=== PATIENT | male | born 1985 | race Caucasian/White ===

== ENCOUNTER 2022-05-09 19:22 | Emergency (ER) | payer OTHER, SELFPAY ==
[2022-05-09] MEDS ORDERED: KETOROLAC 30 MG/ML INJ ONE (20:24)
[2022-05-09] MEDS ORDERED: LIDOCAINE 4% PATCH ONE (20:24)
--- NOTE | 2022-05-09 22:04 | RAD REPORT ---
EXAM DESCRIPTION: RAD - Thoracic Spine Ap/Lat - 05/09/2022 8:59 pm CLINICAL HISTORY: PAIN COMPARISON: No comparisons FINDINGS: AP & lateral views of the thoracic spine were obtained. Thoracic bodies are normal in height and alignment. There are no acute or destructive bony processes seen. No disc space narrowing. Endplate spurring changes are present. No paraspinal masses are identified. IMPRESSION: Negative thoracic spine examination for acute finding.
--- NOTE | 2022-05-09 22:05 | RAD REPORT ---
EXAM DESCRIPTION: RAD - Ribs Left - 05/09/2022 8:59 pm CLINICAL HISTORY: Lifting injury, left-sided rib pain COMPARISON: None. FINDINGS: No displaced rib fracture is seen and no non-displaced rib fractures suspected. No aggress josie rib lesion. No underlying pneumothorax, effusion, infiltrate or pulmonary contusion. IMPRESSION: Negative left rib series.
--- NOTE | 2022-05-09 22:55 | EDPHYS ---
Physician Documentation [facility] Name: Henrique Zelaya Age: 36 yrs Sex: Male : 1985 Arrival Date: 05/09/2022 Time: 19:26 Bed 16 Private MD: ED Physician Harjeet Caal HPI: 05/09 20:06 This 36 yrs old Male presents to ER via Ambulatory with complaints of Back Pain. pm1 20:06 The patient presents with pain that is acute. The symptoms are located in the Left pm1 lower anterior rib cage. 20:06 Onset: The symptoms/episode began/occurred 2 day(s) ago. Associated signs and symptoms: pm1 Pertinent negatives: abdominal pain, dysuria, fever, headache, nausea, vomiting. The problem was sustained lifting heavy object and twisting. Modifying factors: The patient symptoms are alleviated by nothing, the patient symptoms are aggravated by bending, movement. Severity of symptoms: in the emergency department the symptoms are unchanged. The patient has not experienced similar symptoms in the past. The patient has not recently seen a physician. Historical: - Allergies: 19:40 No Known Allergies; lp1 - Home Meds: 19:40 None [Active]; lp1 - PMHx: 19:40 Depression; [place] Dx; lp1 - PSHx: 19:40 Carpel Tunnel; lp1 - Immunization history:: Adult Immunizations up to date. - Social history:: Smoking status: Patient denies any tobacco usage or history of. ROS: 20:06 Constitutional: Negative for fever, chills, and weight loss, Respiratory: Negative for pm1 shortness of breath, cough, wheezing, and pleuritic chest pain, Abdomen/GI: Negative for abdominal pain, nausea, vomiting, diarrhea, and constipation, Back: Negative for injury and pain, MS/Extremity: Negative for injury and deformity, Skin: Negative for injury, rash, and discoloration. 20:06 Neuro: Negative for headache, weakness, numbness, tingling, and seizure. 20:06 Cardiovascular: Positive for left lower rib cage pain, Negative for edema, palpitations. 20:06 All other systems are negative. Exam: 20:06 Constitutional: This is a well developed, well nourished patient who is awake, alert, pm1 and in no acute distress. Head/Face: Normocephalic, atraumatic. 20:06 Back: No spinal tenderness. No costovertebral tenderness. Full range of motion. Skin: Warm, dry with normal turgor. Normal color with no rashes, no lesions, and no evidence of cellulitis. MS/ Extremity: Pulses equal, no cyanosis. Neurovascular intact. Full, normal range of motion. 20:06 Chest/axilla: Inspection: normal, Palpation: crepitus, is not appreciated, tenderness, that is mild, of the left lower lateral anterior chest, that totally reproduces the patient's complaints. 20:06 Cardiovascular: Exam negative for acute changes, Rate: normal, Rhythm: regular, Pulses: no pulse deficits are appreciated, Heart sounds: normal, normal S1and S2. 20:06 Respiratory: Exam negative for acute changes, respiratory distress, shortness of breath, Breath sounds: are clear throughout. 20:06 Abdomen/GI: Exam negative for acute changes, Inspection: abdomen appears normal, Palpation: abdomen is soft and non-tender, in all quadrants. 20:06 Neuro: Exam negative for acute changes, Orientation: is normal, Mentation: is normal, Motor: is normal, moves all fours. Vital Signs: 19:38 BP 134 / 96; Pulse 74; Resp 18; Temp 98.1(O); Pulse Ox 100% on R/A; Weight 86.18 kg lp1 (R); Height 5 ft. 6 in. (167.64 cm); Pain 10/10; 21:17 Pain 7/10; ke1 21:17 Pain 7/10; ke1 21:19 BP 131 / 85; Pulse 69; Resp 17; Pulse Ox 99% on R/A; Pain 7/10; ke1 22:27 BP 138 / 92; Pulse 68; Resp 17; Pulse Ox 99% on R/A; ke1 19:38 Body Mass Index 30.67 (86.18 kg, 167.64 cm) lp1 MDM: 19:33 Patient medically screened. basilia 22:53 Data reviewed: vital signs. Data interpreted: Pulse oximetry: on room air is 99 %. pm1 Interpretation: normal. Counseling: I had a detailed discussion with the patient and/or guardian regarding: the historical points, exam findings, and any diagnostic results supporting the discharge/admit diagnosis, radiology results, the need for outpatient follow up, to return to the emergency department if symptoms worsen or persist or if there are any questions or concerns that arise at home. 05/09 20:04 Order name: Ribs Left XRAY; Complete Time: 22:52 pm1 05/09 20:04 Order name: XRAY Thoracic Spine (Ap/lat); Complete Time: 22:52 pm1 Administered Medications: 20:24 Drug: Ketorolac 60 mg Route: IM; Site: left deltoid; ke1 21:17 Follow up: Pain 7/10 Adult; Response: Pain is decreased ke1 20:25 Drug: Lidoderm Patch 5 % (700 mg/patch) 1 patches Route: Topical; Site: affected area; ke1 21:17 Follow up: Pain 710 Adult; Response: Pain is decreased ke1 Disposition Summary: 05/09/22 22:53 Discharge Ordered Location: Home pm1 Problem: new pm1 Symptoms: have improved pm1 Condition: Stable pm1 Diagnosis - Strain of muscle and tendon of front wall of thorax pm1 Followup: pm1 - With: Emergency Department - When: As needed - Reason: Worsening of condition Followup: pm1 - With: Private Physician - When: 2 - 3 days - Reason: Recheck today's complaints, Continuance of care, Re-evaluation by your physician Discharge Instructions: - Discharge Summary Sheet pm1 - Muscle Strain pm1 Forms: - Medication Reconciliation Form pm1 - Thank You Letter pm1 - Antibiotic Education pm1 - Prescription Opioid Use pm1 Prescriptions: - Cyclobenzaprine 10 mg Oral Tablet - take 1 tablet by ORAL route every 8 hours As needed; 30 tablet; Refills: 0, pm1 Product Selection Permitted - Diclofenac Sodium 75 mg Oral tablet,delayed release (DR/EC) - take 1 tablet by ORAL route 2 times per day As needed; 30 tablet; Refills: 0, pm1 Product Selection Permitted - Lidoderm 5 % Topical adhesive patch,medicated - apply 1 patch by TRANSDERMAL route once daily As needed 12 hours on and 12 pm1 hours off in a 24 hour period; 10 patch; Refills: 0, Product Selection Permitted Signatures: Dispatcher [employer] Harjeet Bansal MD MD cha Pena, Laura RN RN lp1 Anthony Jean NP VPK TEACHER pm1 Little Lund RN RN ke1
--- NOTE | 2022-05-09 22:55 | ER ---
Nurse's Notes [facility] Name: Henrique Zelaya Age: 36 yrs Sex: Male : 1985 Arrival Date: 05/09/2022 Time: 19:26 Bed 16 Private MD: Diagnosis: Strain of muscle and tendon of front wall of thorax Presentation: 05/09 19:38 Chief complaint: Patient states: moving equipment out of trailer and heavy lifting 2 lp1 days ago, reports pain to left rib area radiating to abdomen; denies any trauma or falls. Coronavirus screen: At this time, the client does not indicate any symptoms associated with coronavirus-19. Ebola Screen: No symptoms or risks identified at this time. Initial Sepsis Screen: Does the patient meet any 2 criteria? No. Patient's initial sepsis screen is negative. Does the patient have a suspected source of infection? No. Patient's initial sepsis screen is negative. Risk Assessment: Do you want to hurt yourself or someone else? Patient reports no desire to harm self or others. Onset of symptoms was May 09, 2022. 19:38 Method Of Arrival: Ambulatory lp1 19:38 Acuity: LUCIANA 4 lp1 Triage Assessment: 20:25 General: Appears in no apparent distress. uncomfortable, Behavior is appropriate for ke1 age. Pain: Complains of pain in left side ribs area Pain radiates to abdomen Pain currently is 10 out of 10 on a pain scale. at worst was 10 out of 10 on a pain scale. level that patient reports is acceptable is 5 out of 10 on a pain scale. Quality of pain is described as aching, Pain began suddenly, Alleviated by repositioning. Neuro: Level of Consciousness is awake, alert, Oriented to person, place, time, situation. Respiratory: Respiratory effort is even, unlabored, Respiratory pattern is regular, symmetrical. Musculoskeletal: Capillary refill < 3 seconds, Range of motion: intact in all extremities. Historical: - Allergies: 19:40 No Known Allergies; lp1 - Home Meds: 19:40 None [Active]; lp1 - PMHx: 19:40 Depression; [place] Dx; lp1 - PSHx: 19:40 Carpel Tunnel; lp1 - Immunization history:: Adult Immunizations up to date. - Social history:: Smoking status: Patient denies any tobacco usage or history of. Screenin:25 Abuse screen: Denies threats or abuse. Nutritional screening: No deficits noted. ke1 Tuberculosis screening: No symptoms or risk factors identified. Fall Risk No fall in past 12 months (0 pts). No secondary diagnosis (0 pts). No IV (0 pts). Ambulatory Aid- None/Bed Rest/Nurse Assist (0 pts). Gait- Normal/Bed Rest/Wheelchair (0 pts) Mental Status- Oriented to own ability (0 pts). Total [place] Fall Scale indicates No Risk (0-24 pts). Assessment: 21:16 Reassessment: Patient and/or family updated on plan of care and expected duration. Pain ke1 level reassessed. Patient is alert, oriented x 3, equal unlabored respirations, skin warm/dry/pink. Patient denies pain at this time. Patient states feeling better. Patient states symptoms have improved. Neuro: Level of Consciousness is awake, alert, Oriented to person, place, time, situation. 22:27 Reassessment: Patient and/or family updated on plan of care and expected duration. Pain ke1 level reassessed. Patient states feeling better. Patient states symptoms have improved. Vital Signs: 19:38 BP 134 / 96; Pulse 74; Resp 18; Temp 98.1(O); Pulse Ox 100% on R/A; Weight 86.18 kg lp1 (R); Height 5 ft. 6 in. (167.64 cm); Pain 10/10; 21:17 Pain 7/10; ke1 21:17 Pain 7/10; ke1 21:19 BP 131 / 85; Pulse 69; Resp 17; Pulse Ox 99% on R/A; Pain 7/10; ke1 22:27 BP 138 / 92; Pulse 68; Resp 17; Pulse Ox 99% on R/A; ke1 19:38 Body Mass Index 30.67 (86.18 kg, 167.64 cm) lp1 ED Course: 19:26 Patient arrived in ED. ag3 19:29 Anthony Jean NP is PHCP. pm1 19:29 Harjeet Caal MD is Attending Physician. pm1 19:38 Arm band placed on. lp1 19:39 Triage completed. lp1 19:49 Little Lund RN is Primary Nurse. ke1 20:27 Bed in low position. Call light in reach. ke1 21:01 Ribs Left XRAY In Process Unspecified. EDMS 21:01 XRAY Thoracic Spine (Ap/lat) In Process Unspecified. EDMS 23:16 No provider procedures requiring assistance completed. Patient did not have IV access ke1 during this emergency room visit. Administered Medications: 20:24 Drug: Ketorolac 60 mg Route: IM; Site: left deltoid; ke1 21:17 Follow up: Pain 7/10 Adult; Response: Pain is decreased ke1 20:25 Drug: Lidoderm Patch 5 % (700 mg/patch) 1 patches Route: Topical; Site: affected area; ke1 21:17 Follow up: Pain 7/10 Adult; Response: Pain is decreased ke1 Medication: 23:16 VIS not applicable for this client. ke1 Outcome: 22:53 Discharge ordered by . pm1 23:16 Discharged to home ambulatory. ke1 23:16 Condition: good 23:16 Discharge instructions given to patient. 23:16 Patient left the ED. ke1 Signatures: Dispatcher [employer] EDMS Maria Harp, RN RN lp1 Anthony Jean, RADIO TIME SALES SUPERVISOR RADIO TIME SALES SUPERVISOR pm1 Hattie Aguero ag3 Little Lund RN RN ke1
[2022-05-09 23:22] VITALS: TEMP 98.1
[2022-05-09 23:30] VITALS: O2SAT 99
[2022-05-09 23:31] VITALS: BP 138/92
== END 2022-05-09 23:16 | disposition home or self-care (01) ==
LOC: ER 19:22
DX: S29.011A Strain of muscle and tendon of front wall of thorax, initial encounter (principal)
CPT/HCPCS: 72070; 71100; J2001; 96372; 99283

== ENCOUNTER 2022-10-31 14:27 | Emergency (ER) | payer OTHER ==
[2022-10-31 15:46] LABS: SARS-COV-2 RT PCR NEGATIVE (NEGATIVE)
--- NOTE | 2022-10-31 16:56 | ER ---
Nurse's Notes [facility] Name: Henrique Zelaya Age: 37 yrs Sex: Male : 1985 Arrival Date: 10/31/2022 Time: 14:30 Bed 12 Private MD: Diagnosis: Acute upper respiratory infection, unspecified Presentation: 10/31 14:49 Chief complaint: Headache, body aches, cough, congestion, and chills since this hb morning. Coronavirus screen: Client presents with at least one sign or symptom that may indicate coronavirus-19. Standard/surgical mask placed on the client. Provider contacted for isolation considerations. Ebola Screen: No symptoms or risks identified at this time. Risk Assessment: Do you want to hurt yourself or someone else? Patient reports no desire to harm self or others. Onset of symptoms was October 31, 2022. 14:49 Method Of Arrival: Ambulatory 14:49 Acuity: LUCIANA 4 hb 14:50 Initial Sepsis Screen: Does the patient meet any 2 criteria? No. Patient's initial hb sepsis screen is negative. Does the patient have a suspected source of infection? No. Patient's initial sepsis screen is negative. Triage Assessment: 14:50 General: Appears in no apparent distress. Behavior is calm, cooperative. Pain: Pain hb currently is 10 out of 10 on a pain scale. EENT: Reports sinus congestion. Neuro: Level of Consciousness is awake, alert, obeys commands, Oriented to person, place, time, situation, Reports headache. Cardiovascular: Patient's skin is warm and dry. Respiratory: Respiratory effort is even, unlabored, Respiratory pattern is regular, symmetrical. GI: No signs and/or symptoms were reported involving the gastrointestinal system. : No signs and/or symptoms were reported regarding the genitourinary system. Derm: Skin is pink, warm \T\ dry. Musculoskeletal: Reports body aches. Historical: - Allergies: 14:50 No Known Allergies; hb - PMHx: 14:50 [place] Dx; Depression; hb - PSHx: 14:50 Carpel Tunnel; hb - Immunization history:: Adult Immunizations up to date. - Social history:: Smoking status: Patient denies any tobacco usage or history of. Screenin:20 [facility] ED Fall Risk Assessment (Adult) Score/Fall Risk Level 0 - 2 = Low Risk hb Oriented to surroundings, Maintained a safe environment. Abuse screen: Denies threats or abuse. Denies injuries from another. Nutritional screening: No deficits noted. Tuberculosis screening: No symptoms or risk factors identified. Assessment: 15:20 General: See triage assessment . hb 17:08 Reassessment: Patient is alert, oriented x 3, equal unlabored respirations, skin aa5 warm/dry/pink. Vital Signs: 14:50 BP 118 / 79; Pulse 120; Resp 18; Temp 98.4(TE); Pulse Ox 98% ; Weight 86.18 kg; Height hb 5 ft. 6 in. (167.64 cm); Pain 10/10; 17:08 Pulse 100; Resp 19 S; Temp 99.1(O); Pulse Ox 100% on R/A; aa5 14:50 Body Mass Index 30.67 (86.18 kg, 167.64 cm) hb ED Course: 14:30 Patient arrived in ED. mr 14:32 Rosanne Joshua FNP-C is [facility]. kb 14:32 Harjeet Caal MD is Attending Physician. kb 14:50 Triage completed. hb 14:50 Arm band placed on. hb 15:20 Patient has correct armband on for positive identification. hb 15:27 Nini Jaquez, RN is Primary Nurse. hb 17:09 No provider procedures requiring assistance completed. Patient did not have IV access aa5 during this emergency room visit. Administered Medications: No medications were administered Medication: 15:20 VIS not applicable for this client. hb Outcome: 16:56 Discharge ordered by . kb 17:09 Discharged to home ambulatory. aa5 17:09 Condition: good 17:09 Discharge instructions given to patient, Instructed on discharge instructions, follow up and referral plans. Demonstrated understanding of instructions, follow-up care. 17:09 Patient left the ED. aa5 Signatures: Rosanne Joshua FNP-C FNP-Ckb Dayna HubbardTonja RN RN aa5 Nini Jaquez, JORJE RN hb
--- NOTE | 2022-10-31 16:56 | EDPHYS ---
Physician Documentation [facility] Name: Henrique Zelaya Age: 37 yrs Sex: Male : 1985 Arrival Date: 10/31/2022 Time: 14:30 Bed 12 Private MD: ED Physician Harjeet Caal HPI: 10/31 17:01 This 37 yrs old Male presents to ER via Ambulatory with complaints of Flu Symptoms. kb 17:01 The patient or guardian reports cough, that is intermittent, described as mild, flu kb symptoms, low-grade fever, myalgias, no appetite. Onset: The symptoms/episode began/occurred this morning, at 09:00. Severity of symptoms: At their worst the symptoms were moderate, in the emergency department the symptoms are unchanged. Modifying factors: The symptoms are alleviated by nothing, the symptoms are aggravated by nothing. Associated signs and symptoms: Pertinent positives: fever. The patient has not experienced similar symptoms in the past. The patient has not recently seen a physician. Pr reports malaise, cough, congestion, fever, chills, bodyaches and headache that started at 0900 this morning. Historical: - Allergies: 14:50 No Known Allergies; hb - PMHx: 14:50 [place] Dx; Depression; hb - PSHx: 14:50 Carpel Tunnel; hb - Immunization history:: Adult Immunizations up to date. - Social history:: Smoking status: Patient denies any tobacco usage or history of. ROS: 17:02 Abdomen/GI: Negative for abdominal pain, nausea, vomiting, diarrhea, and constipation. kb 17:02 Constitutional: Positive for body aches, chills, fatigue, fever, malaise. 17:02 ENT: Positive for sinus congestion. 17:02 Respiratory: Positive for cough. 17:02 Neuro: Positive for headache. 17:02 All other systems are negative. Exam: 17:02 Constitutional: This is a well developed, well nourished patient who is awake, alert, kb and in no acute distress. Head/Face: Normocephalic, atraumatic. ENT: Moist Mucous membranes Cardiovascular: Regular rate and rhythm with a normal S1 and S2. No gallops, murmurs, or rubs. No pulse deficits. Respiratory: Respirations even and unlabored. No increased work of breathing. Talking in full sentences Abdomen/GI: Soft, non-tender. No distention Skin: Warm, dry with normal turgor. Normal color. MS/ Extremity: Pulses equal, no cyanosis. Neurovascular intact. Full, normal range of motion. Neuro: Awake and alert, GCS 15, oriented to person, place, time, and situation. Moves all extremities. Normal gait. Psych: Awake, alert, with orientation to person, place and time. Behavior, mood, and affect are within normal limits. Vital Signs: 14:50 BP 118 / 79; Pulse 120; Resp 18; Temp 98.4(TE); Pulse Ox 98% ; Weight 86.18 kg; Height hb 5 ft. 6 in. (167.64 cm); Pain 10/10; 17:08 Pulse 100; Resp 19 S; Temp 99.1(O); Pulse Ox 100% on R/A; aa5 14:50 Body Mass Index 30.67 (86.18 kg, 167.64 cm) hb MDM: 15:01 Patient medically screened. kb 17:00 Data reviewed: vital signs, nurses notes. Data interpreted: Pulse oximetry: on room air kb is 98 %. Interpretation: normal. Counseling: I had a detailed discussion with the patient and/or guardian regarding: the historical points, exam findings, and any diagnostic results supporting the discharge/admit diagnosis, lab results, the need for outpatient follow up, a family practitioner, to return to the emergency department if symptoms worsen or persist or if there are any questions or concerns that arise at home. 10/31 14:51 Order name: COVID-19/FLU A+B; Complete Time: 15:51 kb Administered Medications: No medications were administered Disposition Summary: 10/31/22 16:56 Discharge Ordered Location: Home kb Condition: Stable kb Diagnosis - Acute upper respiratory infection, unspecified kb Followup: kb - With: Emergency Department - When: As needed - Reason: Worsening of condition Followup: kb - With: Private Physician - When: 2 - 3 days - Reason: Recheck today's complaints, Continuance of care, Re-evaluation by your physician Discharge Instructions: - Discharge Summary Sheet kb - Upper Respiratory Infection, Adult, [id number] kb - Viral Respiratory Infection, [id number] kb Forms: - Medication Reconciliation Form kb - Thank You Letter kb - Antibiotic Education kb - Prescription Opioid Use kb Signatures: Dispatcher [employer] Rosanne Caballero, HOOP MACHINE OPERATOR-C HOOP MACHINE OPERATOR-Ckb Nini Jaquez, RN RN hb
[2022-10-31 17:14] VITALS: BP 118/79
[2022-10-31 17:15] VITALS: TEMP 99.1; O2SAT 100
== END 2022-10-31 17:09 | disposition home or self-care (01) ==
LOC: ER 14:27
DX: J06.9 Acute upper respiratory infection, unspecified (principal); Z20.822 Contact with and (suspected) exposure to COVID-19
CPT/HCPCS: 0240U; 99281